=== PATIENT | male | born 1950 | race Caucasian/White ===

== ENCOUNTER 2019-10-22 14:27 | Emergency (ER) | payer OTHER ==
[~2019-10-22] VITALS: Ht 165.1 cm; Wt 81.7 kg
[~2019-10-22 14:27] MED LIST: ASPI81CH PO; HAWTHORN BERRI565 MG PO; Lipitor20 MG PO; VITAMIN D31000 UNIT PO
[2019-10-22] MEDS ORDERED: ALBU2.5V5 (14:53)
[2019-10-22] MEDS ORDERED: [UNRECOGNIZED DRUG - OTHER] BOTHEYES (14:54)
[2019-10-22] MEDS ORDERED: CLOT10 MT (14:54)
[2019-10-22] MEDS ORDERED: Cymbalta20 MG PO (14:56)
[2019-10-22] MEDS ORDERED: OMEP20ER PO (14:57)
[2019-10-22] MEDS ORDERED: Loratadine10 MG PO (14:57)
[2019-10-22] MEDS ORDERED: MIRALAX17 GM PO (14:58)
[2019-10-22] MEDS ORDERED: Crestor20 MG PO (14:58)
[2019-10-22] MEDS ORDERED: TAMS.4ER PO (14:58)
[2019-10-22 15:42] LABS: Source, Urine Voided
[2019-10-22 16:05] LABS: Bilirubin, Urine Neg (Neg); Blood, Urine Neg (Neg); Glucose Qualitative, Urine Neg (Neg); Ketones, Urine Neg (Neg); Leukocyte Esterase, Urine Neg (Neg); Nitrite, Urine Neg (Neg); Protein, Urine Neg (Neg); Specific Gravity, Urine 1.015 (1.003-1.022); Urobilinogen, Urine NORM (Normal)
[2019-10-22 16:31] LABS: Appearance, Urine Clear (Clear); Color, Urine Yellow (P-Yellow)
[2019-10-22] MEDS ORDERED: ACETAMINOPHEN500 MG PO (20:44)
[2019-10-22] MEDS ORDERED: Percocet 5-3251 EACH PO (20:44)
== END 2019-10-22 21:03 | disposition home or self-care (01) ==
LOC: ER 14:27
PROVIDERS: Emergency Medicine
DX: M51.36 Other intervertebral disc degeneration, lumbar region (principal); E78.5 Hyperlipidemia, unspecified; I25.2 Old myocardial infarction; Z91.030 Bee allergy status; Z88.6 Allergy status to analgesic agent; Z88.5 Allergy status to narcotic agent; Z79.899 Other long term (current) drug therapy; Z79.82 Long term (current) use of aspirin; Z79.51 Long term (current) use of inhaled steroids
CPT/HCPCS: 51798; 72131; 81003; 96374; 96375; 96376; 99284-25; J1170; J2405

== ENCOUNTER 2021-05-27 15:09 | Emergency (ER) | payer OTHER ==
[~2021-05-27] VITALS: Ht 165.1 cm; Wt 81.7 kg
[~2021-05-27 15:09] MED LIST changes: +ACETAMINOPHEN500 MG PO; +ALBU2.5V5; +CLOT10 MT; +Crestor20 MG PO; +Cymbalta20 MG PO; +Loratadine10 MG PO; +MIRALAX17 GM PO; +OMEP20ER PO; +Percocet 5-3251 EACH PO; +TAMS.4ER PO; +[UNRECOGNIZED DRUG - OTHER] BOTHEYES
[2021-05-27] MEDS ORDERED: AMLO10 PO (15:42)
[2021-05-27] MEDS ORDERED: Vitamin D1000 UNI1 (15:43)
[2021-05-27 15:45] LABS: BASOPHILS ABSOLUTE AUTO 0.07 K/mm3 (0.00-0.23); BASOPHILS PERCENT AUTO 1 % (0-2); EOSINOPHILS ABSOLUTE AUTO 0.31 K/mm3 (0.00-0.68); EOSINOPHILS PERCENT AUTO 3 % (0-6); Hematocrit 45.9 % (37.0-53.0); Hemoglobin 15.9 g/dL (13.5-17.5); IMMATURE GRAN ABSOLUTE AUTO 0.06 K/mm3 (0.00-0.10); IMMATURE GRAN PERCENT AUTO 1 % (0-1); LYMPHOCYTES ABSOLUTE AUTO 4.07 K/mm3 (0.84-5.20); LYMPHOCYTES PERCENT AUTO 35 % (21-46); MONOCYTES ABSOLUTE AUTO 1.32 K/mm3 (0.16-1.47); MONOCYTES PERCENT AUTO 11 % (4-13); Mean Corpuscular HGB 31.8 pg (26.0-34.0); Mean Corpuscular HGB Conc 34.6 g/dL (31.5-36.5); Mean Corpuscular Volume 92 fL (80-100); Mean Platelet Volume 11.6 fL (9.1-12.4); NEUTROPHILS ABSOLUTE AUTO 5.84 K/mm3 (1.96-9.15); NEUTROPHILS PERCENT AUTO 50 % (41-73); Platelet Count 250 K/mm3 (150-400); RDW Coefficient Variation 13.3 % (11.7-14.2); RDW Standard Deviation 45.5 fL (35.1-46.3); White Blood Cell Count 11.67 K/mm3 (4.00-11.30)
[2021-05-27 16:09] LABS: Alanine Aminotransfer (ALT/SGP 49 U/L (12-78); Albumin, Blood 3.3 g/dL (3.4-5.0); Albumin/Globulin Ratio 0.9 (0.8-1.8); Alk Phos 37 U/L (50-136); Anion Gap 6 mmol/L (6-16); Aspartate Aminotrans (AST/SGOT 28 U/L (12-37); Bilirubin, Total 0.5 mg/dL (0.1-1.0); Blood Urea Nitrogen 25 mg/dL (8-24); Bun/Creatinine Ratio 30.8 (12.0-20.0); CO2, Blood 26 mmol/L (21-32); Calcium, Blood 8.6 mg/dL (8.5-10.1); Chloride, Blood 106 mmol/L (98-108); Creatinine, Blood 0.81 mg/dL (0.60-1.20); Globulin, Blood 3.8 g/dL (2.2-4.0); Glomerular Filtration Rate >60 (60-); Glucose, Blood 110 mg/dL (70-99); Potassium, Blood 4.2 mmol/L (3.5-5.5); Sodium, Blood 138 mmol/L (136-145); Total Protein, Blood 7.1 g/dL (6.4-8.2); Troponin I <0.015 ng/mL (0.000-0.040)
== END 2021-05-27 19:17 | disposition home or self-care (01) ==
LOC: ER 15:09
PROVIDERS: Emergency Medicine
DX: F41.9 Anxiety disorder, unspecified (principal); K21.9 Gastro-esophageal reflux disease without esophagitis; E78.5 Hyperlipidemia, unspecified; I50.9 Heart failure, unspecified; I25.2 Old myocardial infarction; Z91.030 Bee allergy status; Z91.048 Other nonmedicinal substance allergy status; Z88.5 Allergy status to narcotic agent; Z88.8 Allergy status to other drugs, medicaments and biological substances; Z79.82 Long term (current) use of aspirin; Z79.899 Other long term (current) drug therapy
CPT/HCPCS: 71045; 80053; 83880; 84484; 85025; 93005; 93010; 96374; 99285-25; A9270; J2060

== ENCOUNTER 2022-10-14 16:34 | Emergency (ER) | payer OTHER ==
[~2022-10-14] VITALS: Ht 165.1 cm; Wt 78.9 kg
[~2022-10-14 16:34] MED LIST changes: +AMLO10 PO; +Ultram50 MG PO; +Vitamin D1000 UNI1
[2022-10-14] MEDS ORDERED: TRAZ50 PO (16:55)
[2022-10-14] MEDS ORDERED: ROSU10TA PO (16:55)
[2022-10-14] MEDS ORDERED: CYCL10 PO (16:58)
[2022-10-14] MEDS ORDERED: NITR.4SL SL ×2 (16:59→20:55)
[2022-10-14] MEDS ORDERED: METO25ER PO (17:01)
[2022-10-14 17:12] LABS: BASOPHILS ABSOLUTE AUTO 0.07 K/mm3 (0.00-0.23); BASOPHILS PERCENT AUTO 1 % (0-2); EOSINOPHILS PERCENT AUTO 2 % (0-6); Hematocrit 44.7 % (37.0-53.0); Hemoglobin 15.5 g/dL (13.5-17.5); IMMATURE GRAN ABSOLUTE AUTO 0.03 K/mm3 (0.00-0.10); IMMATURE GRAN PERCENT AUTO 0 % (0-1); LYMPHOCYTES ABSOLUTE AUTO 5.06 K/mm3 (0.84-5.20); LYMPHOCYTES PERCENT AUTO 47 % (21-46); MONOCYTES PERCENT AUTO 9 % (4-13); Mean Corpuscular HGB 32.1 pg (26.0-34.0); Mean Corpuscular HGB Conc 34.7 g/dL (31.5-36.5); Mean Corpuscular Volume 93 fL (80-100); Mean Platelet Volume 11.9 fL (9.1-12.4); NEUTROPHILS ABSOLUTE AUTO 4.37 K/mm3 (1.96-9.15); NEUTROPHILS PERCENT AUTO 41 % (41-73); Platelet Count 239 K/mm3 (150-400); RDW Coefficient Variation 12.6 % (11.7-14.2); RDW Standard Deviation 43.5 fL (35.1-46.3); Red Blood Cell Count 4.83 M/mm3 (4.30-5.90); White Blood Cell Count 10.73 K/mm3 (4.00-11.30)
[2022-10-14 17:55] LABS: Albumin/Globulin Ratio 1.1 (0.8-1.8); Bilirubin, Total 0.6 mg/dL (0.1-1.0); Bun/Creatinine Ratio 30.7 (12.0-20.0); Calcium, Blood 9.3 mg/dL (8.5-10.1); Creatinine, Blood 0.75 mg/dL (0.60-1.20); Globulin, Blood 3.7 g/dL (2.2-4.0); Total Protein, Blood 7.7 g/dL (6.4-8.2)
[2022-10-14 21:30] VITALS: BP 107/61
[2022-10-15] MEDS ORDERED: NITR.4SL SL (11:57)
== END 2022-10-14 21:38 | disposition home or self-care (01) ==
LOC: ER 16:34
PROVIDERS: Emergency Medicine
DX: R07.9 Chest pain, unspecified (principal); Z88.8 Allergy status to other drugs, medicaments and biological substances; Z91.030 Bee allergy status; Z91.041 Radiographic dye allergy status; Z88.5 Allergy status to narcotic agent; Z79.899 Other long term (current) drug therapy; E78.5 Hyperlipidemia, unspecified; I50.9 Heart failure, unspecified; I25.2 Old myocardial infarction; Z87.891 Personal history of nicotine dependence
CPT/HCPCS: 71045; 80053; 84484; 85025; 93005; 93010; 99285-25; A9270

== ENCOUNTER 2025-01-18 08:14 | Emergency (ER) | payer OTHER ==
[~2025-01-18] VITALS: Ht 165.1 cm; Wt 79.8 kg
[~2025-01-18 08:14] MED LIST changes: +CYCL10 PO; +METO25ER PO; +NITR.4SL SL; +ONDA4ODT MM; +ROSU10TA PO; +TRAZ50 PO
[2025-01-18 09:06] LABS: BASOPHILS ABSOLUTE AUTO 0.05 K/mm3 (0.00-0.23); BASOPHILS PERCENT AUTO 1 % (0-2); EOSINOPHILS ABSOLUTE AUTO 0.00 K/mm3 (0.00-0.68); EOSINOPHILS PERCENT AUTO 0 % (0-6); Hematocrit 42.5 % (37.0-53.0); Hemoglobin 14.8 g/dL (13.5-17.5); IMMATURE GRAN ABSOLUTE AUTO 0.02 K/mm3 (0.00-0.10); IMMATURE GRAN PERCENT AUTO 0 % (0-1); LYMPHOCYTES ABSOLUTE AUTO 1.08 K/mm3 (0.84-5.20); LYMPHOCYTES PERCENT AUTO 14 % (21-46); MONOCYTES ABSOLUTE AUTO 0.99 K/mm3 (0.16-1.47); MONOCYTES PERCENT AUTO 13 % (4-13); Mean Corpuscular HGB Conc 34.8 g/dL (31.5-36.5); Mean Corpuscular Volume 91 fL (80-100); NEUTROPHILS ABSOLUTE AUTO 5.50 K/mm3 (1.96-9.15); NEUTROPHILS PERCENT AUTO 72 % (41-73); NRBC ABSOLUTE 0.00 K/mm3 (0.00-0.02); NRBC Auto 0.0 /100 WBC (0.0-0.2); Platelet Count 199 K/mm3 (150-400); RDW Coefficient Variation 13.2 % (11.7-14.2); RDW Standard Deviation 44.5 fL (35.1-46.3)
[2025-01-18 09:44] LABS: Alanine Aminotransfer (ALT/SGP 51.0 U/L (12-78); Albumin, Blood 4.0 g/dL (3.4-5.0); Albumin/Globulin Ratio 1.0 (0.8-1.8); Anion Gap 8.0 mmol/L (3-11); Aspartate Aminotrans (AST/SGOT 47.0 U/L (12-37); Bilirubin, Total 0.5 mg/dL (0.1-1.0); Blood Urea Nitrogen 21.0 mg/dL (8-24); CO2, Blood 27.0 mmol/L (21-32); Calcium, Blood 8.6 mg/dL (8.5-10.1); Chloride, Blood 104.0 mmol/L (98-108); Creatinine, Blood 0.92 mg/dL (0.60-1.20); Globulin, Blood 4.0 g/dL (2.2-4.0); Glucose, Blood 116.0 mg/dL (70-99); Potassium, Blood 4.0 mmol/L (3.5-5.5); Sodium, Blood 135.0 mmol/L (136-145); Total Protein, Blood 8.0 g/dL (6.4-8.2)
[2025-01-18 10:20] LABS: Influenza A, PCR NEGATIVE (NEGATIVE); Influenza B, PCR NEGATIVE (NEGATIVE); Resp Syncytial Virus, PCR NEGATIVE (NEGATIVE)
[2025-01-18 10:26] LABS: SARS-Cov-2 (COVID-19) PCR, MMC POSITIVE (NEGATIVE)
[2025-01-18 10:59] LABS: Source, Urine Clean Catch
[2025-01-18 11:02] LABS: Bilirubin, Urine Neg (Neg); Color, Urine Yellow (P-Yellow); Glucose Qualitative, Urine Neg (Neg); Ketones, Urine 1+ (Neg); Leukocyte Esterase, Urine 1+ (Neg); Protein, Urine 2+ (Neg); Specific Gravity, Urine 1.025 (1.003-1.022); Urobilinogen, Urine NORM (Normal)
[2025-01-18 11:12] LABS: White Blood Cells, Urine 0-2 /hpf (0-5)
[2025-01-18] MEDS ORDERED: Ketorolac Tromethamine 30mg Vial IV ONE (11:25)
[2025-01-18 12:15] VITALS: BP 142/69
== END 2025-01-18 12:31 | disposition home or self-care (01) ==
LOC: ER 08:14
PROVIDERS: Emergency Medicine
DX: U07.1 COVID-19 (principal); M79.10 Myalgia, unspecified site; M25.562 Pain in left knee; E78.5 Hyperlipidemia, unspecified; I50.9 Heart failure, unspecified; M54.50 Low back pain, unspecified; Z91.030 Bee allergy status; Z88.8 Allergy status to other drugs, medicaments and biological substances; Z79.899 Other long term (current) drug therapy; Z87.442 Personal history of urinary calculi; Z87.891 Personal history of nicotine dependence
CPT/HCPCS: 51701; 73562-LT; 80053; 81001; 85025; 87086; 87637; 96374; 99284-25; J1885